=== PATIENT | female | born 1975 | race Asian ===

== ENCOUNTER 2017-04-18 12:40 | Emergency (ER) | payer OTHER ==
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
[2017-04-18 15:34] VITALS: BP 102/64; PULSE 73; RESP 16; TEMP 98.6; O2SAT 96
== END 2017-04-18 15:33 | disposition home or self-care (01) ==
DX: S16.1XXA Strain of muscle, fascia and tendon at neck level, initial encounter (principal); S39.012A Strain of muscle, fascia and tendon of lower back, initial encounter; V49.40XA Driver injured in collision with unspecified motor vehicles in traffic accident, initial encounter; Y92.410 Unspecified street and highway as the place of occurrence of the external cause; Y99.8 Other external cause status; Y93.89 Activity, other specified